=== PATIENT | female | born 1965 | race Caucasian/White ===

== ENCOUNTER 2017-03-25 12:20 | Emergency (ER) | payer BC ==
[2017-03-25 12:32] VITALS: BP 129/64; PULSE 74; RESP 20; TEMP 97.8
[2017-03-25] MEDS ORDERED: ALPRAZolam 0.25 MG TAB PO STA (13:21)
[2017-03-25] MEDS: PROPARACAINE 0.5% OPHTH DROPS 15 ML BTL RIGHT EYE SCH ×2 (13:38→14:22)
--- NOTE | 2017-03-25 14:06 | ED ---
Eye Problem HPI - General Chief complaint: Eye Problems Stated complaint: Eye Pain Time Seen by Provider: 03/25/17 12:47 Source: patient, RN notes reviewed Mode of arrival: ambulatory Limitations: no limitations - History of Present Illness Initial comments: 51-year-old female presented to the ER complaining of right thigh pain. She states that the pain started mid week and has been increasing in severity since. She went to [facility] earlier today and they did give her numbing drops and did an exam with fluoresceins stain however they were unable to see anything. They recommended that she proceed to the ER. She states that she did try to put in some lubricating drops however this has not been successful to alleviate her discomfort. She does have a history of corneal abrasions in the past. She does not wear contact lenses however she does wear glasses which does not have them with her today. She states that she is not having major visual acuity disturbances. She denies any constitutional symptoms including fever, chills, double vision, nausea or vomiting, abdominal pain, diarrhea. - Related Data Home Medications Medication Instructions Recorded Confirmed Sertraline [Zoloft] 75 mg PO DAILY 03/25/17 03/25/17 clonazePAM [KlonoPIN] 0.25 mg PO DAILY PRN 03/25/17 03/25/17 Allergies Allergy/AdvReac Type Severity Reaction Status Date / Time Penicillins Allergy Unknown Verified 03/25/17 12:45 Quinolones Allergy Unknown Verified 03/25/17 12:45 Sulfa (Sulfonamide Allergy Unknown Verified 03/25/17 12:45 Antibiotics) Review of Systems ROS Statement: Those systems with pertinent positive or pertinent negative responses have been documented in the HPI. ROS Other: All systems not noted in ROS Statement are negative. Past Medical History Past Medical History: No Reported History History of Any Multi-Drug Resistant Organisms: None Reported Past Surgical History: No Surgical Hx Reported Past Psychological History: Anxiety, Depression Smoking Status: Never smoker Past Alcohol Use History: Rare Past Drug Use History: None Reported General Exam Limitations: no limitations General appearance: alert, in distress (Secondary to pain and anxiety) Head exam: Present: atraumatic, normocephalic Eye exam: Present: normal appearance, PERRL, EOMI, other (Eyelid eversion was performed foreign body was appreciated and removed the cotton tipped applicator. It did appear that this may be a gr of sand. Visual acuity performed by nursing staff however patient does not have glasses with her.) Pupils: Present: normal accommodation Neck exam: Present: normal inspection Respiratory exam: Present: normal lung sounds bilaterally Cardiovascular Exam: Present: regular rate, normal rhythm Neurological exam: Present: alert, oriented X3, CN II-XII intact Psychiatric exam: Present: normal affect, anxious Skin exam: Present: warm, dry, intact Course Vital Signs 03/25/17 12:30 Temperature 97.8 F Pulse Rate 74 Respiratory 20 Rate Blood Pressure 129/64 O2 Sat by Pulse 100 Oximetry Medical Decision Making - Medical Decision Making 51-year-old female presented to the ER complaining of right eye pain. She states that it did feel like a scratching sensation and upon eyelid eversion a foreign body was appreciated and removed. It appeared that it may have been sand. At that time I do not feel the need to do a repeat fluorescein stain since she had this completed at [facility]. Since a foreign body was appreciated I went ahead and treated her for corneal abrasion. She was given erythromycin ointment to use 4 times daily. She is to follow up with her industrial real estate agent this week for further evaluation. It was instructed that her symptoms should improve within 24-40 hours and if they worsen she is discharged ER. Patient was agreeable to treatment plan and voiced understanding. Due to patient's high-level anxiety was given a Xanax in the ER. Disposition Clinical Impression: Corneal abrasion, Foreign body, eye Disposition: HOME SELF-CARE Condition: Good Instructions: Eye Foreign Body (ED) Additional Instructions: To follow-up with finance professor this week. To return to the ER with any worsening or new symptoms or concerns. Referrals: Dayday Camp MD [STAFF PHYSICIAN] - 1-2 days Time of Disposition: 14:10
[2017-03-25] MEDS ORDERED: ACET/COD 300 MG/30 MG STARTER PACK 6 TAB BTL PO STA (14:09)
[2017-03-25] MEDS ORDERED: ERYTHROMYCIN 5 MG/GM OPHTH OINT 3.5 GM TUBE RIGHT EYE ONE (14:15)
== END 2017-03-25 14:35 | disposition home or self-care (01) ==
LOC: EC 12:20
DX: T15.01XA Foreign body in cornea, right eye, initial encounter (principal); F32.9 Major depressive disorder, single episode, unspecified; F41.9 Anxiety disorder, unspecified; Z79.899 Other long term (current) drug therapy; Z88.0 Allergy status to penicillin; Z88.1 Allergy status to other antibiotic agents; Z88.2 Allergy status to sulfonamides; X58.XXXA Exposure to other specified factors, initial encounter
CPT/HCPCS: 65220; 99283